=== PATIENT | female | born 1980 | race Caucasian/White ===

== ENCOUNTER 2018-03-28 10:03 | Emergency (ER) | payer BC ==
[2018-03-28] MEDS ORDERED: HYDROcodone/Acetaminophen 10/325 mg Tablet ONE (10:32)
--- NOTE | 2018-03-28 10:49 | RAD ---
2 VIEWS LEFT FOREARM: Date: 03/28/18 INDICATION: Left forearm injury after fall from horse. COMPARISON: None. FINDINGS: No acute fracture is evident. Radiocapitellar alignment appears within normal limits. IMPRESSION: No definite acute osseous abnormality. There is some soft tissue swelling involving the left wrist. R adiocapitellar alignment appears within normal limits. POS: [facility]
[2018-03-28] MEDS ORDERED: Bacitracin Zinc 1 Packet ONE (11:45)
== END 2018-03-28 11:48 | disposition home or self-care (01) ==
LOC: ERS 10:03
DX: S60.812A Abrasion of left wrist, initial encounter (principal); V80.010A Animal-rider injured by fall from or being thrown from horse in noncollision accident, initial encounter